=== PATIENT | female | born 1955 | race Caucasian/White ===

== ENCOUNTER 2019-03-31 16:23 | Emergency (ER) | payer MEDICARE ==
[~2019-03-31] VITALS: Ht 157.5 cm; Wt 71.4 kg
[~2019-03-31 16:23] MED LIST: CIPRO 500MG TA500 MG PO; ERGOCALCIFER50000 IU PO; FLAGYL500 MG PO; VITAMIN B-1000 MCG/T PO; ZOFRAN 4MG T4 MG/TAB PO
[2019-03-31 16:34] VITALS: BP 133/101; TEMP 97.7
[2019-03-31 17:20] LABS: BASO # 0.1 (0.0-0.2); BASO % 0.5 % (0.0-2.0); EOS # 0.3 (0.0-0.7); EOS % 2.5 % (0-4.0); GRAN # 5.9 (1.4-6.5); GRAN % 55.2 % (42.2-75.2); HEMATOCRIT 42.2 % (37.0-47.0); HEMOGLOBIN 14.4 g/dl (12.5-16.0); INR 0.9 (0.8-3.0); LYMPH # 3.8 (1.2-3.4); LYMPH % 35.4 % (20.0-51.0); MEAN CELL VOLUME 94 fl (80.0-100.0); MEAN CORPUSCULAR HEMOGLOBIN 32 pg (27.0-31.0); MEAN CORPUSCULAR HGB CONC 34 g/dl (33.0-37.0); MEAN PLATELET VOLUME 10.3 fl (7.4-10.4); MONO # 0.7 (0.1-0.6); MONO % 6.2 % (1.7-9.3); PLATELET COUNT 258 K/mm3 (130-400); PROTHROMBIN TIME 10.3 SECONDS (9.7-12.8); RED BLOOD COUNT 4.51 M/mm3 (4.10-5.30); REDCELL DISTRIBUTION WIDTH-CV 13.1 % (11.5-14.5)
[2019-03-31 17:21] LABS: ALANINE AMINOTRANSFERASE 6 U/L (9-52); ALBUMIN 4.6 gm/dL (3.5-5.0); ALKALINE PHOSPHATASE 61 U/L (50-136); ANION GAP 11 mmol/L (7-16); AST,SGOT 18 U/L (15-37); BILIRUBIN,TOTAL 0.3 mg/dL (0.0-1.0); BLOOD UREA NITROGEN 14 mg/dL (7-17); CALCIUM 9.6 mg/dL (8.4-10.2); CARBON DIOXIDE 26 mmol/L (22-30); CHLORIDE 102 mmol/L (98-107); CREATINE KINASE 33 U/L (30-135); CREATININE, serum 1.01 (0.52-1.25); GLUCOSE 97 mg/dL (74-106); LIPASE 130 U/L (23-300); SODIUM 139 mmol/L (137-145); TOTAL PROTEIN 7.6 gm/dL (6.4-8.2)
[2019-03-31 17:33] LABS: TROPONIN-I < 0.012 ng/mL (0.000-0.035)
[2019-03-31 20:32] VITALS: PULSE 88
== END 2019-03-31 20:32 | disposition home or self-care (01) ==
LOC: COL.ER 16:23
PROVIDERS: Emergency Medicine
DX: R07.89 Other chest pain (principal); E78.5 Hyperlipidemia, unspecified; F17.210 Nicotine dependence, cigarettes, uncomplicated; Z90.89 Acquired absence of other organs
CPT/HCPCS: J7030

== ENCOUNTER 2023-10-04 06:31 | Day surgery (SDC) | payer MEDICARE ==
[~2023-10-04] VITALS: Ht 157.5 cm; Wt 68.1 kg
[~2023-10-04 06:31] MED LIST changes: +LR 1,000 ML IV SCH
[2023-10-04] MEDS ORDERED: CRESTOR 10MG10 MG PO (07:17)
[2023-10-04] MEDS ORDERED: ZOLOFT 100MG100 MG PO (07:18)
[2023-10-04] MEDS ORDERED: Lidocaine PF 1% (10 MG/ML) 5 ML VIAL ONE (07:32)
[2023-10-04 07:37] VITALS: BP 135/56; PULSE 75; TEMP 97.4
[2023-10-04] MEDS ORDERED: Succinylcholine PF 200 MG/10 ML SYRINGE IV ONE (07:40)
[2023-10-04] MEDS ORDERED: Albuterol 0.083% Neb Soln 2.5 MG/3 ML UD IH ONE (09:00)
[2023-10-04 09:05] VITALS: BP 107/58; PULSE 87; TEMP 98.3
[2023-10-04 09:20] VITALS: BP 124/50; PULSE 82
[2023-10-04 09:35] VITALS: BP 123/54; PULSE 78
--- NOTE | 2023-10-04 10:12 | NUR ---
[id number]: PT TO RECOVERY IN ENDO TX ROOM S/P R BRONCHOSCOPY, WASHING/BRUSHING NOW WITH RESOLVING HEMOPTYSIS A&O, PLACED ON MONITOR, VSS ON RA RT HAS BEEN IN TO ADMIN [facility] [place], WILL COME BACK TO PROVIDE PT WITH SPACER FOR HER NEW INHALER RX - PT ED ON USE, VERBALIZED RECEIVED REPORT AND ASSUMED CARE OF PT FROM RN GRISELDA SON AT BEDSIDE SPEECH CLEAR, SWALLOW REFLEX INTACT, PROVIDED WATER, TOLERATING WELL XR CALLED, CXR COMPLETED AT BEDSIDE. SPACER OBTAINED AND HANDED TO PT. PT HAS REMAINED A&O, NAD, VSS ON RA, TOLERATING PO, IS WITHOUT SIGNIFICANT COMPLAINT, WITH STEADY GAIT THRU OUT RECOVERY IV D/C'D. D/C INSTRUCTIONS, FOLLOW UP REVIEWED AND HANDED TO PT. ALL QUESTIONS AND CONCERNS ADDRESSED TO PT SATISFACTION. TAKEN TO EXIT VIA W/C WITH ALL BELONGINGS AND PAPERWORK IN HAND, ASSISTED INTO PASSENGER SEAT OF POV. SON TO DRIVE HOME.
== END 2023-10-04 09:45 | disposition home or self-care (01) ==
LOC: SDCO 06:31
DX: R91.8 Other nonspecific abnormal finding of lung field (principal); R06.02 Shortness of breath; F17.210 Nicotine dependence, cigarettes, uncomplicated
CPT/HCPCS: J2704; J7120

== ENCOUNTER 2023-12-17 10:04 | Emergency (ER) | payer MEDICARE ==
[~2023-12-17] VITALS: Ht 157.5 cm; Wt 71.4 kg
[~2023-12-17 10:04] MED LIST changes: +CRESTOR 10MG10 MG PO; -LR 1,000 ML IV SCH; +ZOLOFT 100MG100 MG PO
[2023-12-17 10:11] VITALS: TEMP 98.4
[2023-12-17 11:40] VITALS: BP 136/70; PULSE 83
== END 2023-12-17 11:40 | disposition home or self-care (01) ==
LOC: COL.ER 10:04
DX: S09.90XA Unspecified injury of head, initial encounter (principal); S43.402A Unspecified sprain of left shoulder joint, initial encounter; S00.83XA Contusion of other part of head, initial encounter; C34.90 Malignant neoplasm of unspecified part of unspecified bronchus or lung; Z87.891 Personal history of nicotine dependence; W19.XXXA Unspecified fall, initial encounter